=== PATIENT | female | born 1950 | race Caucasian/White ===

== ENCOUNTER 2016-12-28 07:48 | Inpatient (IN) | payer OTHER, MEDICARE ==
[2016-12-28] MEDS ORDERED: NS 1,000 ML IV ONE ×2 (07:55→10:05)
[2016-12-28] MEDS ORDERED: LORazepam 2 MG/ML INJ IVP ONE (08:08)
[2016-12-28 08:19] LABS: % IMMATURE GRANULYOCYTES 0.6 % (0.0-1.1); ADD DIFF? NO; ADD MORPH? NO; ADD SCAN? NO; ATYPICAL LYMPHOCYTE FLAG 0 (0-99); FRAGMENT RBC FLAG 0 (0-99); HEMATOCRIT 40.5 % (38.0-47.0); HEMOGLOBIN 14.9 g/dL (12.6-16.3); LEFT SHIFT FLG 0 (0-99); LIPEMIA HEMOLYSIS FLAG 90 (0-99); MEAN CELL HEMOGLOBIN 30.4 pg (27.9-34.1); MEAN CELL HEMOGLOBIN CONCENTR. 36.8 g/dL (32.4-36.7); MEAN CELL VOLUME 82.7 fL (81.5-99.8); MEAN PLATELET VOLUME 10.5 fL (8.7-11.7); PLATELET CLUMPS FLAG 0 (0-99); PLATELET COUNT 263 10^3/uL (150-400); RED CELL DISTRIBUTION WIDTH 11.9 % (11.5-15.2)
[2016-12-28 08:46] LABS: ALANINE AMINOTRANSFERASE 53 IU/L (9-52); ALBUMIN 4.6 g/dL (3.5-5.0); ALKALINE PHOSPHATASE 92 IU/L (38-126); ANION GAP 17 mEq/L (8-16); ASPARTATE AMINOTRANSFERASE 41 IU/L (14-46); BILIRUBIN,TOTAL 2.1 mg/dL (0.1-1.4); BILIRUBIN-CONJUGATED 0.3 mg/dL (0.0-0.5); BILIRUBIN-UNCONJUGATED 1.8 mg/dL (0.0-1.1); CALCIUM 9.5 mg/dL (8.5-10.4); CARBON DIOXIDE 18 mEq/l (22-31); CHLORIDE 82 mEq/L (97-110); CREATININE 0.8 mg/dL (0.6-1.0); GLOMERULAR FILTRATION RATE > 60; GLUCOSE 179 mg/dL (70-100); POTASSIUM 4.4 mEq/L (3.5-5.2); TOTAL PROTEIN 7.6 g/dL (6.3-8.2)
[2016-12-28 08:48] LABS: SODIUM 117 mEq/L (134-144)
--- NOTE | 2016-12-28 08:54 | EDPHY ---
H & P Stated Complaint: n/v/d Time Seen by Provider: 12/28/16 07:55 HPI/ROS: CHIEF COMPLAINT: Feeling shaky and weak HISTORY OF PRESENT ILLNESS: The patient presents to the ED via ambulance with generalized weakness and shakiness. The patient reports her symptoms have progressed over the past half day. She initially felt constipated yesterday. She took a number of [id number] laxatives and finally had improvement of her constipation and in fact developed fairly significant watery diarrhea. Over the course of the evening, discontinued. The patient did have one episode of vomiting. Today she felt "terrible" with generalized weakness and shaking all over. The patient denies acute abdominal pain. The patient does take medications for hyperlipidemia and hypertension. REVIEW OF SYSTEMS: A comprehensive 10 point review of systems is otherwise negative aside from elements mentioned in the history of present illness. Source: Patient Exam Limitations: No limitations - Personal History Current Tetanus Diphtheria and Acellular Pertussis (TDAP): Yes - Medical/Surgical History Hx Asthma: No Hx Chronic Respiratory Disease: No Hx Diabetes: No Hx Cardiac Disease: No Hx Renal Disease: No Hx Cirrhosis: No Hx Alcoholism: No Other PMH: good health. some htn in late 20s - Social History Smoking Status: Never smoked - Physical Exam Exam: General Appearance: Alert, tremulous, mild discomfort Eyes: Pupils equal and round no pallor or injection ENT, Mouth: Mucous membranes moist Respiratory: There are no retractions, lungs are clear to auscultation Cardiovascular: Regular rate and rhythm Gastrointestinal: Abdomen is soft and nontender, no masses, bowel sounds normal Neurological: A&O, normal motor function, normal sensory exam, normal cranial nerves Skin: Warm and dry, no rashes Musculoskeletal: Neck is supple nontender Extremities: symmetrical, full range of motion Constitutional: Initial Vital Signs Temperature (C) 36.3 C 12/28/16 08:07 Heart Rate 75 12/28/16 08:07 Respiratory Rate 30 H 12/28/16 08:07 Blood Pressure 138/112 H 12/28/16 08:07 O2 Sat (%) 100 12/28/16 08:07 O2 Delivery Mode Room Air Allergies/Adverse Reactions: No Known Allergies Allergy (Unverified 01/06/16 16:38) Home Medications: Medication Instructions Recorded Metoprolol Tartrate 25 mg PO BID #30 tablet 08/05/16 Multivitamin [Multi-Vitamin Daily] 01/06/16 Medical Decision Making ED Course/Re-evaluation: The patient presents to the ED with generalized weakness and uneasiness following profuse watery diarrhea and laxative use. The patient is noted to have an benign abdominal examination. She received Zofran prior to arrival. The patient received 1 L of normal saline and screening laboratory studies have been sent. Patient's laboratory studies do demonstrate a sodium of 117. The patient's last sodium level was slightly low at 132 in August. Recheck sodium is 118 after 1 L of normal saline. Case is discussed with the hospitalist Dr. Herrmann. The patient will receive another 1 L of normal saline over the next 12 hours. This will be infused using a pump. The patient will be admitted to the hospital for close observation. The patient presents to the ED with acute hyponatremia in the setting of diarrhea and recent laxative usage. The patient will be admitted to the hospital for observation and correction of her electrolyte abnormality. Differential Diagnosis: Differential diagnosis considered includes metabolic acidosis, dehydration, electrolyte abnormality, renal failure, medication side effect - Data Points Laboratory Results: Laboratory Results 12/28/16 Unknown 12/28/16 Unknown 12/28/16 12/28/16 12/28/16 Unknown Unknown 09:15 WBC 15.69 10^3/uL H 10^3/uL (3.80-9.50) RBC 4.90 10^6/uL 10^6/uL (4.18-5.33) Hgb 14.9 g/dL g/dL (12.6-16.3) Hct 40.5 % % (38.0-47.0) MCV 82.7 fL fL (81.5-99.8) MCH 30.4 pg pg (27.9-34.1) MCHC 36.8 g/dL H g/dL (32.4-36.7) RDW 11.9 % % (11.5-15.2) Plt Count 263 10^3/uL 10^3/uL (150-400) MPV 10.5 fL fL (8.7-11.7) Neut % (Auto) 86.9 % H % (39.3-74.2) Lymph % (Auto) 7.5 % L % (15.0-45.0) [place] % (Auto) 4.4 % L % (4.5-13.0) Eos % (Auto) 0.4 % L % (0.6-7.6) Baso % (Auto) 0.2 % L % (0.3-1.7) Nucleat RBC Rel Count 0.0 % % (0.0-0.2) Absolute Neuts (auto) 13.64 10^3/uL H 10^3/uL (1.70-6.50) Absolute Lymphs (auto) 1.17 10^3/uL 10^3/uL (1.00-3.00) Absolute Monos (auto) 0.69 10^3/uL 10^3/uL (0.30-0.80) Absolute Eos (auto) 0.06 10^3/uL 10^3/uL (0.03-0.40) Absolute Basos (auto) 0.03 10^3/uL 10^3/uL (0.02-0.10) Absolute Nucleated RBC 0.00 10^3/uL 10^3/uL (0-0.01) Immature Gran % 0.6 % % (0.0-1.1) Immature Gran # 0.10 10^3/uL 10^3/uL (0.00-0.10) Sodium 117 mEq/L L* mEq/L 118 mEq/L L* mEq/L (134-144) (134-144) Potassium 4.4 mEq/L mEq/L 3.8 mEq/L mEq/L (3.5-5.2) (3.5-5.2) Chloride 82 mEq/L L mEq/L 90 mEq/L L mEq/L (97-110) (97-110) Carbon Dioxide 18 mEq/l L mEq/l 19 mEq/l L mEq/l (22-31) (22-31) Anion Gap 17 mEq/L H mEq/L 9 mEq/L mEq/L (8-16) (8-16) BUN 22 mg/dL mg/dL 20 mg/dL mg/dL (7-23) (7-23) Creatinine 0.8 mg/dL mg/dL 0.7 mg/dL mg/dL (0.6-1.0) (0.6-1.0) Estimated GFR > 60 > 60 Glucose 179 mg/dL H mg/dL 134 mg/dL H mg/dL (70-100) (70-100) Calcium 9.5 mg/dL mg/dL 8.1 mg/dL L mg/dL (8.5-10.4) (8.5-10.4) Total Bilirubin 2.1 mg/dL H mg/dL (0.1-1.4) Conjugated Bilirubin 0.3 mg/dL mg/dL (0.0-0.5) Unconjugated Bilirubin 1.8 mg/dL H mg/dL (0.0-1.1) AST 41 IU/L IU/L (14-46) ALT 53 IU/L H IU/L (9-52) Alkaline Phosphatase 92 IU/L IU/L (38-126) Total Protein 7.6 g/dL g/dL (6.3-8.2) Albumin 4.6 g/dL g/dL (3.5-5.0) Lipase 66.0 IU/L IU/L (23-300) Medications Given: Discontinued Medications Sodium Chloride (Ns) 1,000 mls @ 0 mls/hr IV EDNOW ONE; Wide Open PRN Reason: Protocol Stop: 12/28/16 07:56 Last Admin: 12/28/16 08:05 Dose: 1,000 mls Lorazepam (Ativan Injection) 0.5 mg IVP EDNOW ONE Stop: 12/28/16 08:09 Last Admin: 12/28/16 08:16 Dose: 0.5 mg Departure - Departure Disposition: [facility] Acute Clinical Impression: Hyponatremia, Diarrhea, Dehydration Condition: Good Referrals: Sandra Almanza PA [Primary Care Provider] - As per Instructions
[2016-12-28 09:48] LABS: ANION GAP 9 mEq/L (8-16); CALCIUM 8.1 mg/dL (8.5-10.4); CARBON DIOXIDE 19 mEq/l (22-31); CHLORIDE 90 mEq/L (97-110); CREATININE 0.7 mg/dL (0.6-1.0); GLOMERULAR FILTRATION RATE > 60; GLUCOSE 134 mg/dL (70-100); POTASSIUM 3.8 mEq/L (3.5-5.2)
[2016-12-28 09:51] LABS: SODIUM 118 mEq/L (134-144)
[2016-12-28] MEDS ORDERED: PROMETHAZINE HCL 25 MG TAB PO PRN (12:07)
[2016-12-28] MEDS ORDERED: ONDANSETRON 4 MG/2 ML VIAL IVP PRN (12:07)
[2016-12-28] MEDS ORDERED: ACETAMINOPHEN 325 MG TAB PO PRN (12:07)
[2016-12-28] MEDS ORDERED: ONDANSETRON DISINTEGRATING 4 MG TAB PO PRN (12:07)
[2016-12-28] MEDS ORDERED: PROMETHAZINE HCL 25 MG/ML INJ IVP PRN (12:07)
[2016-12-28] MEDS ORDERED: NS W/ 20 KCl/L 1,000 ML IV SCH (12:15)
[2016-12-28 13:17] LABS: COLOR COLORLESS; LEUKOCYTE ESTERASE,URINE NEGATIVE (NEGATIVE); NITRITE,URINE NEGATIVE (NEGATIVE)
[2016-12-28 13:22] LABS: ANION GAP 9 mEq/L (8-16); CALCIUM 8.9 mg/dL (8.5-10.4); CARBON DIOXIDE 20 mEq/l (22-31); CHLORIDE 99 mEq/L (97-110); CREATININE 0.8 mg/dL (0.6-1.0); GLOMERULAR FILTRATION RATE > 60; GLUCOSE 100 mg/dL (70-100); POTASSIUM 3.9 mEq/L (3.5-5.2); SODIUM 128 mEq/L (134-144)
[2016-12-28] MEDS ORDERED: D5W 1,000 ML IV SCH ×2 (14:15→19:30)
--- NOTE | 2016-12-28 14:35 | PDGENHP ---
History and Physical - Chief Complaint Acute weakness - History of Present Illness primary care provider: JENNA Mccartney HPI: 66-year-old female presents with acute weakness characterized as generalized and "terrible feeling" with associated shakiness, nonproductive cough, constipation, resulting in nausea vomiting and diarrhea. Patient reports that she had otherwise been in her usual state of health until the day prior to this presentation. Onset on the day prior, when she was experiencing what she describes as severe constipation with fecal impaction. She attempted to manually disimpact and also took oral milk of magnesium. This was not effective. She ended up taking Dulcolax suppository and this produced immediate alleviation with resultant liquid stool. Patient reports that she was experiencing ongoing liquid stool throughout the majority of the night. She then also began vomiting on the morning of this presentation. Overall duration of her symptoms has been less than 24 hours. She reports that during the symptoms, she attempted to drink amounts of free water to remain hydrated. She does report that she missed her evening meal prior to presentation. She has not taken any of her home medications on the morning of this presentation. She reports that her urine output has remained steady. History Information - Allergies/Home Medication List Allergies/Adverse Reactions: No Known Allergies Allergy (Unverified 01/06/16 16:38) Home Medications: Ascorbic Acid [Vitamin C 500 mg (*)] 1,000 mg PO DAILY18 12/28/16 [Last Taken ] Atorvastatin Calcium [Lipitor 20 mg (*)] 20 mg PO DAILY@23 12/28/16 [Last Taken 12/27/16] Carvedilol [Coreg (*)] 6.25 mg PO BIDMEAL 12/28/16 [Last Taken 12/27/16 18:00] Cholecalciferol Vit D3 [Vitamin D3 (*)] 1,000 units PO DAILY18 12/28/16 [Last Taken 12/26/16] Cyanocobalamin [Vitamin B12 (*)] 1,000 mcg PO DAILY18 12/28/16 [Last Taken 12/26] Herbals/Supplements -Info Only 1 ea PO DAILY 12/28/16 [Last Taken Unknown] Hydrochlorothiazide [HCTZ (*)] 12.5 mg PO DAILY 12/28/16 [Last Taken 12/27/16] Gifford-3 Fatty Acids [Fish Oil 1000 mg (*)] 3,000 mg PO DAILY18 12/28/16 [Last Taken 12/26/16] Spironolactone [Aldactone 50 MG (RX)] 100 mg PO DAILY 12/28/16 [Last Taken 12/27] amLODIPine BESYLATE [Norvasc 5 mg (*)] 5 mg PO DAILY 12/28/16 [Last Taken ] I have personally reviewed and updated: family history, medical history, social history, surgical history - Past Medical History hypertension - Surgical History Additional surgical history: recent right mandibular tooth extraction - Family History Additional family history: both parents with hypertension, no family history of renal disease - Social History Smoking Status: Never smoked Alcohol Use: None Drug Use: None Additional social history: reports that she is normally physically active Review of Systems ROS: 10pt was reviewed & negative except for what was stated in HPI & below Constitutional: Reports: weakness, other ( shakiness, feels terrible) Respiratory: Reports: cough Gastrointestinal: Reports: vomitting, constipation, diarrhea, nausea Physical Exam Temp Pulse Resp BP Pulse Ox 36.8 C 72 18 120/90 H 96 12/28/16 10:04 12/28/16 10:04 12/28/16 10:04 12/28/16 10:04 12/28/16 10:04 Constitutional: no apparent distress, appears nourished, not in pain, uncomfortable Eyes: PERRL, anicteric sclera, EOMI Ears, Nose, Mouth, Throat: moist mucous membranes, hearing normal, ears appear normal, no oral mucosal ulcers Cardiovascular: regular rate and rhythym, no murmur, rub, or gallop, No edema Respiratory: no respiratory distress, no rales or rhonchi, clear to auscultation Gastrointestinal: normoactive bowel sounds, soft, non-tender abdomen, no palpable masses, No distension Skin: other ( good turgor, no abrasions) Neurologic: AAOx3, sensation intact bilaterally, No weakness ( motor strength 5/ 5 bilateral upper and lower extremities), No asterixes ( no tremulousness) Psychiatric: interacting appropriately, not anxious, not encephalopathic, thought process linear Lab Data & Imaging Review 12/28/16 Unknown 12/28/16 Unknown WBC 15.69 10^3/uL (3.80-9.50) H 12/28/16 Unknown RBC 4.90 10^6/uL (4.18-5.33) 12/28/16 Unknown Hgb 14.9 g/dL (12.6-16.3) 12/28/16 Unknown Hct 40.5 % (38.0-47.0) 12/28/16 Unknown MCV 82.7 fL (81.5-99.8) 12/28/16 Unknown MCH 30.4 pg (27.9-34.1) 12/28/16 Unknown MCHC 36.8 g/dL (32.4-36.7) H 12/28/16 Unknown RDW 11.9 % (11.5-15.2) 12/28/16 Unknown Plt Count 263 10^3/uL (150-400) 12/28/16 Unknown MPV 10.5 fL (8.7-11.7) 12/28/16 Unknown Neut % (Auto) 86.9 % (39.3-74.2) H 12/28/16 Unknown Lymph % (Auto) 7.5 % (15.0-45.0) L 12/28/16 Unknown [place] % (Auto) 4.4 % (4.5-13.0) L 12/28/16 Unknown Eos % (Auto) 0.4 % (0.6-7.6) L 12/28/16 Unknown Baso % (Auto) 0.2 % (0.3-1.7) L 12/28/16 Unknown Nucleat RBC Rel Count 0.0 % (0.0-0.2) 12/28/16 Unknown Absolute Neuts (auto) 13.64 10^3/uL (1.70-6.50) H 12/28/16 Unknown Absolute Lymphs (auto) 1.17 10^3/uL (1.00-3.00) 12/28/16 Unknown Absolute Monos (auto) 0.69 10^3/uL (0.30-0.80) 12/28/16 Unknown Absolute Eos (auto) 0.06 10^3/uL (0.03-0.40) 12/28/16 Unknown Absolute Basos (auto) 0.03 10^3/uL (0.02-0.10) 12/28/16 Unknown Absolute Nucleated RBC 0.00 10^3/uL (0-0.01) 12/28/16 Unknown Immature Gran % 0.6 % (0.0-1.1) 12/28/16 Unknown Immature Gran # 0.10 10^3/uL (0.00-0.10) 12/28/16 Unknown Sodium 117 mEq/L (134-144) L* 12/28/16 Unknown Potassium 4.4 mEq/L (3.5-5.2) 12/28/16 Unknown Chloride 82 mEq/L (97-110) L 12/28/16 Unknown Carbon Dioxide 18 mEq/l (22-31) L 12/28/16 Unknown Anion Gap 17 mEq/L (8-16) H 12/28/16 Unknown BUN 22 mg/dL (7-23) 12/28/16 Unknown Creatinine 0.8 mg/dL (0.6-1.0) 12/28/16 Unknown Estimated GFR > 60 12/28/16 Unknown Glucose 179 mg/dL (70-100) H 12/28/16 Unknown Serum Osmolality 270 mosmo/kg (280-297) L 12/28/16 12:53 Calcium 9.5 mg/dL (8.5-10.4) 12/28/16 Unknown Total Bilirubin 2.1 mg/dL (0.1-1.4) H 12/28/16 Unknown Conjugated Bilirubin 0.3 mg/dL (0.0-0.5) 12/28/16 Unknown Unconjugated Bilirubin 1.8 mg/dL (0.0-1.1) H 12/28/16 Unknown AST 41 IU/L (14-46) 12/28/16 Unknown ALT 53 IU/L (9-52) H 12/28/16 Unknown Alkaline Phosphatase 92 IU/L (38-126) 12/28/16 Unknown Total Protein 7.6 g/dL (6.3-8.2) 12/28/16 Unknown Albumin 4.6 g/dL (3.5-5.0) 12/28/16 Unknown Lipase 66.0 IU/L (23-300) 12/28/16 Unknown TSH 0.858 uIU/mL (0.465-4.680) 12/28/16 12:53 Urine Color COLORLESS 12/28/16 12:41 Urine Appearance CLEAR 12/28/16 12:41 Urine pH 7.0 (5.0-7.5) 12/28/16 12:41 Ur Specific [place] 1.001 (1.002-1.030) L 12/28/16 12:41 Urine Protein NEGATIVE (NEGATIVE) 12/28/16 12:41 Urine Ketones NEGATIVE (NEGATIVE) 12/28/16 12:41 Urine Blood NEGATIVE (NEGATIVE) 12/28/16 12:41 Urine Nitrate NEGATIVE (NEGATIVE) 12/28/16 12:41 Urine Bilirubin NEGATIVE (NEGATIVE) 12/28/16 12:41 Urine Urobilinogen NEGATIVE EU (0.2-1.0) 12/28/16 12:41 Ur Leukocyte Esterase NEGATIVE (NEGATIVE) 12/28/16 12:41 Urine Osmolality 63 mosmo/kg (300-900) L 12/28/16 12:41 Urine Glucose NEGATIVE (NEGATIVE) 12/28/16 12:41 Assessment & Plan Assessment: 66-year-old female presents with acute severe hyponatremia Plan: 1. Severe hyponatremia. Acute, new problem this provider, further workup indicated. Most likely secondary to a combination of hypovolemia with GI losses secondary to laxative use as well as polydipsia with free water as the patient was attempting to avoid dehydration -reviewed outside records including 08/02/2016 outpatient lab, serum sodium level is 132 at that time, patient reports to me that this was results of her reducing her dietary salt intake and drinking a significant amount of free water on a daily basis, notably 8 glasses, at least -presenting level 117 with symptoms, no evidence of seizure - status post 1 L of normal saline in the emergency department and initial increase in serum sodium level only marginal up to 118, has presently over corrected to a level of 128 - adjust fluids to D5W 100 cc/hour - will consult with Nephrology to determine whether we should give DDAVP or monitor the effect of free water before initiating -urine sodium level pending, urine Osmo is 60, demonstrating extremely dilute urine -q4 hour sodium checks 2. hypertension. Chronic, reviewed outside records including 01/05, emergency department report by Dr. Johnny Maradiaga, reports the patient presented with a systolic blood pressure of 2/140 without any known diagnosis of hypertension, prescribed metoprolol, discharged with outpatient follow-up - since initiating metoprolol, patient did complain of fatigue symptoms and her primary care provider adjusted her to carvedilol as well as amlodipine and hydrochlorothiazide - will hold patient's hydrochlorothiazide given the above -continue amlodipine and carvedilol, maintain a systolic blood pressure in the 130 to 150 range, hold antihypertensives if interfering Diet. Regular Prophylaxis. Moderate risk patient, Lovenox 40 Code. Full Disposition. Anticipated discharge uncertain this time, anticipated length stay is greater than 48 hours warranting inpatient admission status for severe acute hyponatremia requiring frequent lab draws, further workup, IV fluids and anticipated recovery period of at least 48 hours given the severity and the risks of rapid correction. I have discussed the presentation with Dr. Billy Herrmann, he has signed the patient out to me for admission.
[2016-12-28] MEDS ORDERED: DESMOPRESSIN ACETATE 2 MCG in NS 50 ML IV ONE (15:13)
[2016-12-28] MEDS: CARVEDILOL 6.25 MG TAB PO SCH (18:41)
[2016-12-28] MEDS: OMEGA-3 FATTY ACIDS 1,000 MG CAP PO SCH (18:42)
[2016-12-28] MEDS: CHOLECALCIFEROL VIT D3 1,000 UNITS TAB PO SCH (18:42)
[2016-12-28] MEDS: ASCORBIC ACID 500 MG TAB PO SCH (18:42)
[2016-12-28] MEDS: CYANO/VITAMIN B12 1000 MCG TAB PO SCH (18:42)
--- NOTE | 2016-12-28 19:09 | SOAPPROG ---
SOAP Progress Note Assessment/Plan: Assessment: Please see dictation # [id number] Hyponatremia- suspect poor solute intake (very low urine Osm and urine Na) now with over rapid correction- given DDAVP and D5W, now Na back to 129 goal correction no more than 8 points in first 24 hours ( < 125 by 9 am)--thus needs continued free water replacement to lower her further. May need further DDAVP- will see what next labs are. Check Na q2 hours for now in ICU Would avoid thiazide in future I discussed with Dr. John Sherman MD [facility] pager [phone] Plan: 12/28/16 19:42 Objective: Vital Signs Temp Pulse Resp BP Pulse Ox 36.4 C 71 18 120/90 H 98 12/28/16 18:00 12/28/16 18:41 12/28/16 18:00 12/28/16 18:41 12/28/16 18:00 Laboratory Results 12/28/16 Unknown 12/28/16 Unknown 12/27/16 12/28/16 12/29/16 05:59 05:59 05:59 Intake Total 1850 Balance 1850 ICD10 Worksheet Patient Problems: Problems Problem Status Onset Dehydration Acute Diarrhea Acute Hyponatremia Acute
[2016-12-28] MEDS ORDERED: DESMOPRESSIN ACETATE 4 MCG/ML INJ IVP ONE (21:00)
--- NOTE | 2016-12-28 21:26 | GCON ---
[f rep st] CONSULTATION INPATIENT NEPHROLOGY CONSULTATION DATE OF CONSULTATION: 12/28/2016 REFERRING PHYSICIAN: Tanner Garcia of [facility] REASON FOR CONSULTATION: Hyponatremia. HISTORY OF PRESENT ILLNESS: The patient is a 66-year-old woman with a history of hypertension, who presented to the emergency room today complaining of weakness after several episodes of diarrhea. S he has a history of hypertension and takes spironolactone, hydrochlorothiazide, Coreg, and amlodipin e. She developed severe constipation earlier in the week and took several laxatives. Unfortunately , she began then having several episodes of diarrhea. She was unable to eat any food but continued to drink several glasses of water. On arrival to the emergency room, her sodium was 118 at 9:00 thi s morning. She was given IV normal saline in the emergency room, and her sodium began to rapidly co rrect to a value of 128 at 1:[address] Garcia called me at that point. We gave her DD [employer] as well as D5W. Her sodium on the next check was up to 134, but our most recent check at 1830, is down to 129. The patient tells me that her sodium has been low before. Reviewing labs in the [facility] system, her sodium is 132 on August 02 of this year. Again, she is on a thiazide diuretic. S he did have a TSH checked that was normal at 0.858. She denies any history of congestive heart fail ure or lower extremity edema. She has not had any liver disease. She reports that the weakness and diarrhea has improved significantly since arrival. REVIEW OF SYSTEMS: GENERAL: She has had generalized malaise, poor oral intact. No fevers. HEENT: No sore throat. PULMONARY: No shortness of breath. CARDIAC: No lower extremity edema. No chest pain. GI: She had severe constipation and subsequent diarrhea after taking laxatives. No blood i n her stool. : No dysuria. No difficulty voiding. SKIN: No rash. NEUROLOGIC: She did have so me weakness and dizziness; that has improved. No confusion per her family. HEMATOLOGIC: No bleedin g. PAST MEDICAL HISTORY: Hypertension. SOCIAL HISTORY: She is . Denies any tobacco, alcohol, or drug use. FAMILY HISTORY: There is hypertension in her family. No kidney disease, as far as she is aware. OUTPATIENT MEDICATIONS: Included: 1. Vitamin C. 2. Lipitor. 3. Coreg. 4. Vitamin D3. 5. Vitamin B12. 6. Herbal supplement. 7. HCTZ. 8. Fish oil. 9. Spironolactone. 10. Amlodipine. CURRENT MEDICATIONS: Includes: 1. Tylenol p.r.n. 2. Amlodipine 5 mg p.o. daily. 3. Vitamin C 1000 mg daily. 4. Lipitor 20 mg p.o. daily. 5. Coreg 6.25 mg p.o. b.i.d. 6. Vitamin D3 1000 units daily. 7. D5W at 250 cc/hr. 8. Lovenox 40 mg subcutaneously daily. 9. Fish oil 3000 mg p.o. daily. 10. Zofran p.r.n. 11. Phenergan p.r.n. 12. Vitamin B complex daily. PHYSICAL EXAMINATION: VITAL SIGNS: Temperature is 36.4, blood pressure is 120/90, pulse is 71, sat ting 98% on room air. GENERAL: She is in no acute distress, lying in bed comfortably. Appears wel l. HEENT: Mucous membranes are moist. No scleral icterus. NECK: Supple. LUNGS: Clear to auscu ltation bilaterally. CARDIOVASCULAR: Regular rate and rhythm. No murmurs or rub. ABDOMEN: Soft, nontender. No ascites. EXTREMITIES: Warm. Low perfusion. No edema. SKIN: No rash. NEUROLOGI C: Alert and oriented x3. No focal deficits. LABORATORY DATA: Her most recent sodium was 129 at 1830. Her labs from earlier today had a potassi um of 3.9, chloride 99, bicarbonate 22, BUN 15, creatinine 0.8. Serum osmolarity is 270, calcium 8. 9, total bilirubin 2.1, unconjugated bili 1.8, AST 41, ALT 53, alkaline phosphatase 92, total protei n 7.6, albumin 4.6, lipase 66. TSH 0.858. Her urine sodium is 10. Her urine osmolarity is 63. He r UA was negative for blood and protein. White blood cell count 15, hemoglobin 14.9, hematocrit 40. 5, platelets 263. ASSESSMENT AND PLAN: The patient is a 66-year-old woman with a history of hypertension, who now pre sents with several episodes of diarrhea, poor oral intake, and weakness, and found to have severe hy ponatremia: 1. Hyponatremia: Her initial serum sodium at 9:00 this morning was 118 with her initial urine stud ies that suggest of poor solute intake. This is consistent with her report of essentially just drin marine water over the past day and not eating much. She did overly rapidly correct with administratio n of IV normal saline, and we have had to give her some DDAVP and D5W water to bring her down. Her goal sodium correction should be no more than 8 points in the first 24 hours, thus her sodium should no more than 125 by 9:00 tomorrow morning. Her most recent sodium is down to 129. I would continu e the D5W and encouraging her to drink oral water at this point. We may need to re-dose her with DD [employer] if she does not continue drift down. Neurologically, she is intact. I have recommended that sh e be in the ICU for frequent lab checks. At this point, we should do q.2 hour sodiums to ensure it is correcting appropriately. Her thyroid studies are normal. In the future. I would avoid a thiazi de diuretic in her as she is at risk for recurrence. Her labs in August did show that she had some m ild hyponatremia at baseline, and this is admittedly due to her excessive water intake in the settin g of a thiazide. 2. Hypertension: She is continuing on spironolactone, amlodipine, and Coreg. Again, I would avoid a thiazide in the future with her given the severity of this episode. Thank you very much for the consultation. We will continue to follow closely with you. Please do no t hesitate to call with any questions. I have discussed my recommendations with Dr. Garcia and the ICU team. /[id number]/MODL
[2016-12-28] MEDS: ATORVASTATIN CALCIUM 20 MG TAB PO SCH (22:46)
[2016-12-29 05:08] LABS: % IMMATURE GRANULYOCYTES 0.4 % (0.0-1.1); ABSOLUTE IMMATURE GRANULOCYTES 0.03 10^3/uL (0.00-0.10); ADD DIFF? NO; ADD MORPH? NO; ADD SCAN? NO; ATYPICAL LYMPHOCYTE FLAG 0 (0-99); FRAGMENT RBC FLAG 0 (0-99); HEMATOCRIT 30.9 % (38.0-47.0); HEMOGLOBIN 11.2 g/dL (12.6-16.3); LEFT SHIFT FLG 20 (0-99); LIPEMIA HEMOLYSIS FLAG 90 (0-99); MEAN CELL HEMOGLOBIN 30.8 pg (27.9-34.1); MEAN CELL HEMOGLOBIN CONCENTR. 36.2 g/dL (32.4-36.7); MEAN CELL VOLUME 84.9 fL (81.5-99.8); PLATELET CLUMPS FLAG 0 (0-99); PLATELET COUNT 176 10^3/uL (150-400); RED BLOOD CELL COUNT 3.64 10^6/uL (4.18-5.33); RED CELL DISTRIBUTION WIDTH 12.1 % (11.5-15.2)
[2016-12-29 05:24] LABS: ALANINE AMINOTRANSFERASE 39 IU/L (9-52); ALBUMIN 3.1 g/dL (3.5-5.0); ALKALINE PHOSPHATASE 53 IU/L (38-126); ANION GAP 8 mEq/L (8-16); ASPARTATE AMINOTRANSFERASE 28 IU/L (14-46); BILIRUBIN,TOTAL 0.8 mg/dL (0.1-1.4); CALCIUM 7.9 mg/dL (8.5-10.4); CARBON DIOXIDE 20 mEq/l (22-31); CHLORIDE 92 mEq/L (97-110); CREATININE 0.7 mg/dL (0.6-1.0); GLOMERULAR FILTRATION RATE > 60; GLUCOSE 113 mg/dL (70-100); MAGNESIUM 1.9 mg/dL (1.6-2.3); POTASSIUM 3.3 mEq/L (3.5-5.2); SODIUM 120 mEq/L (134-144); TOTAL PROTEIN 5.4 g/dL (6.3-8.2)
[2016-12-29] MEDS ORDERED: Herbals/Supplements -Info Only PO SCH (09:00)
[2016-12-29] MEDS ORDERED: amLODIPine BESYLATE 5 MG TAB PO SCH (09:00)
[2016-12-29] MEDS: CARVEDILOL 6.25 MG TAB PO SCH ×2 (09:16→17:17)
[2016-12-29] MEDS: amLODIPine BESYLATE 5 MG TAB PO SCH (09:17)
[2016-12-29] MEDS: ENOXAPARIN 40 MG/0.4 ML SYR SC SCH (09:17)
[2016-12-29] MEDS ORDERED: ALTEPLASE 2 MG VIAL IVP PRN (11:03)
--- NOTE | 2016-12-29 11:12 | SOAPPROG ---
SOAP Progress Note Assessment/Plan: Assessment: Please see dictation # [id number] Hyponatremia- suspect poor solute intake (very low urine Osm and urine Na) with over rapid correction- given DDAVP and D5W, now Na down to 117 goal correction no more than 8 points in 24 hours ( < 125 by 9 am)--now holding D5W and water. Adding back in NS @ 100 cc/hr with further adjustment as needed based on next labs. I expect her to start to correct as the DDAVP and water effect wears off. I will repeat urine studies now. Encourage po solute intake ( Restrict fluids 1L/day). Check Na q2 hours for now in ICU Would avoid thiazide in future Hypokalemia- repleting HTN I discussed with Dr. Lopez and SALES TRAINING MANAGER Tressa Sherman MD [facility] pager [phone] 12/29/16 12:47 12/29/16 12:50 Subjective: Feels weak and some nausea today. No vomiting, not eating much. No sob. Given more DDAVP and water overnight. Objective: Vital Signs Temp Pulse Resp BP Pulse Ox 36.4 C 75 19 133/69 H 98 12/29/16 08:00 12/29/16 09:16 12/29/16 08:00 12/29/16 09:17 12/29/16 08:00 Laboratory Results 12/29/16 04:50 12/29/16 08:50 12/28/16 12/29/16 12/30/16 05:59 05:59 05:59 Intake Total 5263 142 Output Total 750 Balance 4513 142 Physical Exam - Physical Exam General Appearance: alert, no apparent distress EENT: normal ENT inspection Neck: supple Respiratory: lungs clear Cardiac/Chest: regular rate, rhythm Abdomen: normal bowel sounds, non-tender, soft Skin: warm/dry Extremities: other (no edema) Neuro/Psych: alert, oriented x 3 ICD10 Worksheet Patient Problems: Problems Problem Status Onset Dehydration Acute Diarrhea Acute Hyponatremia Acute
[2016-12-29] MEDS ORDERED: NS 1,000 ML IV SCH (13:00)
--- NOTE | 2016-12-29 16:20 | HOSPPROG ---
Hospitalist Progress Note Assessment/Plan: Assessment: 66-year-old female presents with acute severe hyponatremia Plan: 1. Severe hyponatremia. Acute, initially secondary to a combination of hypovolemia with GI losses secondary to laxative use as well as polydipsia with free water as the patient was attempting to avoid dehydration -corrected too rapidly yesterday, received two doses of DDAVP + D5W and increased PO fluid intake, now stuck at 117 -cont to encourage PO solid intake, free water restriction -d/w Dr. Adhikari, she recommended NS low rate, cont q2h checks via PICC line 2. Hypertension. Chronic -will hold patient's hydrochlorothiazide given the above -continue amlodipine and carvedilol Diet. Regular Prophylaxis. Moderate risk patient, Lovenox 40 Code. Full Disposition. Anticipated discharge uncertain, requiring freq Na checks Subjective: Counseled patient extensively regarding the need to check frequent sodium levels, encourage her to increase her oral intake of solids, discussed the reasoning behind the fluid restriction, discussed sleep interruptions with q.2 hours vital signs Objective: Vital Signs Temp Pulse Resp BP Pulse Ox 36.5 C 66 16 137/87 H 99 12/29/16 16:00 12/29/16 16:00 12/29/16 16:00 12/29/16 16:00 12/29/16 16:00 Laboratory Results 12/29/16 04:50 12/28/16 12/29/16 12/30/16 05:59 05:59 05:59 Intake Total 5263 142 Output Total 750 Balance 4513 142 - Time Spent With Patient Time Spent with Patient: greater than 35 minutes Time Spent with Patient: Greater than 35 minutes spent on this patients care, greater than 50% of time spent counseling, educating, and coordinating care regarding the above mentioned plan. - Physical Exam Constitutional: no apparent distress, appears nourished, not in pain Cardiovascular: regular rate and rhythym, no murmur, rub, or gallop Respiratory: no respiratory distress, no rales or rhonchi, clear to auscultation Gastrointestinal: normoactive bowel sounds, soft, non-tender abdomen, no palpable masses Neurologic: AAOx3, No asterixes ( not tremulous) Psychiatric: interacting appropriately, not anxious, not encephalopathic, thought process linear ICD10 Worksheet Patient Problems: Problems Problem Status Onset Dehydration Acute Diarrhea Acute Hyponatremia Acute
[2016-12-29] MEDS ORDERED: FUROSEMIDE 20 MG TAB PO ONE (17:00)
[2016-12-29] MEDS: CHOLECALCIFEROL VIT D3 1,000 UNITS TAB PO SCH (17:14)
[2016-12-29] MEDS: CYANO/VITAMIN B12 1000 MCG TAB PO SCH (17:14)
[2016-12-29] MEDS: OMEGA-3 FATTY ACIDS 1,000 MG CAP PO SCH (17:14)
[2016-12-29] MEDS: ASCORBIC ACID 500 MG TAB PO SCH (17:18)
[2016-12-29] MEDS ORDERED: SODIUM CHLORIDE 1,000 MG TAB PO SCH (18:00)
[2016-12-29] MEDS: ATORVASTATIN CALCIUM 20 MG TAB PO SCH (23:19)
[2016-12-29] MEDS ORDERED: D5W 1,000 ML IV ONE (23:30)
[2016-12-30 02:04] LABS: MAGNESIUM 1.9 mg/dL (1.6-2.3)
[2016-12-30] MEDS ORDERED: D5W 1,000 ML IV ONE (06:00)
--- NOTE | 2016-12-30 07:34 | SOAPPROG ---
SOAP Progress Note Assessment/Plan: Assessment: Please see dictation # [id number] Hyponatremia- suspect poor solute intake (very low urine Osm and urine Na) with over rapid correction- given DDAVP and D5W. Then Na stuck at high teens yesterday afternoon- given IV NS, NaCL tabs and one dose lasix--Na rising a bit fast overnight so giving D5W back and lifting fluid restriction. Check Na q2 hours for now in ICU- can back off frequency once sure Na stable Would avoid thiazide in future Hypokalemia- repleting HTN- amlodipine/carvedilol I discussed with [employer] Tressa Sherman MD [facility] pager [phone] 12/30/16 08:00 Subjective: Feels much better this am. Ate some pizza for dinner, going for walk now. No n/ v. Objective: Vital Signs Temp Pulse Resp BP Pulse Ox 36.5 C 74 12 126/68 H 99 12/29/16 16:00 12/29/16 23:19 12/29/16 23:19 12/29/16 23:19 12/29/16 23:19 Laboratory Results 12/29/16 04:50 12/30/16 04:45 12/29/16 12/30/16 12/31/16 05:59 05:59 05:59 Intake Total 5263 2021 Output Total 750 Balance 4513 2021 Physical Exam - Physical Exam General Appearance: no apparent distress Neck: supple Cardiac/Chest: regular rate, rhythm Extremities: other (no edema) Neuro/Psych: alert, oriented x 3 ICD10 Worksheet Patient Problems: Problems Problem Status Onset Dehydration Acute Diarrhea Acute Hyponatremia Acute
[2016-12-30] MEDS: CARVEDILOL 6.25 MG TAB PO SCH ×2 (08:23→18:16)
[2016-12-30] MEDS: ENOXAPARIN 40 MG/0.4 ML SYR SC SCH (08:24)
[2016-12-30] MEDS: amLODIPine BESYLATE 5 MG TAB PO SCH (08:24)
[2016-12-30] MEDS ORDERED: D5W 1,000 ML IV SCH (13:00)
--- NOTE | 2016-12-30 15:39 | HOSPPROG ---
Hospitalist Progress Note Assessment/Plan: Assessment: 66-year-old female presents with acute severe hyponatremia Plan: 1. Severe hyponatremia. Acute, initially secondary to a combination of hypovolemia with GI losses secondary to laxative use as well as polydipsia with free water as the patient was attempting to avoid dehydration -required adjustment o/n from NS to D5 today given too rapid of correction -d/w Dr. Adhikari, she recommended continuing D5 w/ loosening water restriction, monitoring q4h Na -counseled the patient extensively on today's plan, cautious improvement in Na levels 2. Hypertension. Chronic -will hold patient's hydrochlorothiazide given the above -continue amlodipine and carvedilol Diet. Regular Prophylaxis. Moderate risk patient, Lovenox 40 Code. Full Disposition. Anticipated discharge 12/31, requiring freq Na checks and ongoing d5 IVF Subjective: patient reports she is eating well Objective: Vital Signs Temp Pulse Resp BP Pulse Ox 36.5 C 68 16 123/67 H 100 12/30/16 08:00 12/30/16 12:00 12/30/16 12:00 12/30/16 12:00 12/30/16 12:00 Laboratory Results 12/29/16 04:50 12/30/16 12:00 12/29/16 12/30/16 12/31/16 05:59 05:59 05:59 Intake Total 5263 2 245 Output Total 750 Balance 4513 2 245 - Time Spent With Patient Time Spent with Patient: greater than 25 minutes Time Spent with Patient: Greater than 25 minutes spent on this patients care, greater than 50% of time spent counseling, educating, and coordinating care regarding the above mentioned plan. - Pending Discharge Pending Discharge Within 24 Hours: Yes Pending Discharge Date: 12/31/16 Pending Discharge Time: 11:00 - Physical Exam Constitutional: no apparent distress, appears nourished, not in pain Cardiovascular: No edema Neurologic: AAOx3 Psychiatric: interacting appropriately, not anxious, not encephalopathic, thought process linear ICD10 Worksheet Patient Problems: Problems Problem Status Onset Hyponatremia Acute Diarrhea Acute Dehydration Acute
[2016-12-30] MEDS ORDERED: DESMOPRESSIN ACETATE 4 MCG/ML INJ IVP ONE (16:40)
[2016-12-30] MEDS ORDERED: DESMOPRESSIN ACETATE 1 MCG in NS 50 ML IV ONE (17:45)
[2016-12-30] MEDS: OMEGA-3 FATTY ACIDS 1,000 MG CAP PO SCH (18:15)
[2016-12-30] MEDS: CYANO/VITAMIN B12 1000 MCG TAB PO SCH (18:16)
[2016-12-30] MEDS: CHOLECALCIFEROL VIT D3 1,000 UNITS TAB PO SCH (18:16)
[2016-12-30] MEDS: ASCORBIC ACID 500 MG TAB PO SCH (18:16)
[2016-12-30] MEDS: ATORVASTATIN CALCIUM 20 MG TAB PO SCH (22:53)
[2016-12-31 04:48] LABS: MAGNESIUM 1.6 mg/dL (1.6-2.3)
[2016-12-31 07:57] VITALS: RESP 18; TEMP 97.4; O2SAT 97
[2016-12-31] MEDS: ENOXAPARIN 40 MG/0.4 ML SYR SC SCH (07:59)
[2016-12-31] MEDS: CARVEDILOL 6.25 MG TAB PO SCH (07:59)
[2016-12-31] MEDS: amLODIPine BESYLATE 5 MG TAB PO SCH (07:59)
[2016-12-31 08:00] VITALS: PULSE 73
[2016-12-31] MEDS ORDERED: amLODIPine BESYLATE 5 MG TAB PO SCH (09:00)
[2016-12-31 10:02] VITALS: BP 152/80
--- NOTE | 2016-12-31 12:17 | SOAPPROG ---
SOAP Progress Note Assessment/Plan: Assessment/Plan: The patient is a 66 y/o F with a known h/o HTN who presented with hyponatremia that may have been multifactorial 2/2 to HCTZ, diarrhea, and poor solute intake that rapidly overcorrected and is now improved with D5W and DDAVP Hyponatremia- -Would continue to hold hctz. -Limit fluid intake to 1.5L for now. -Increase protein intake. -Repeat BMP later this week as outpatient. -Patient to follow-up in my office next week. Hypokalemia- repleting HTN- -amlodipine/carvedilol -hold aldactone and taking home BP's -f/u as above 12/31/16 12:14 Subjective: The patient is a sitting up to chair feeling much better. She states that she is eating more and is aware not to drink too much water. Denies further nausea, diarrhea, confusion, or other ROS. Objective: Vital Signs Temp Pulse Resp BP Pulse Ox 36.3 C 73 18 152/80 H 97 12/31/16 07:57 12/31/16 07:59 12/31/16 07:57 12/31/16 10:01 12/31/16 07:57 Laboratory Results 12/29/16 04:50 12/31/16 10:30 12/30/16 12/31/16 01/01/17 05:59 05:59 05:59 Intake Total 2021 2560 Balance 2021 2560 Physical Exam - Physical Exam General Appearance: alert, no apparent distress Neck: non-tender, full range of motion, supple Respiratory: lungs clear, normal breath sounds Cardiac/Chest: normal peripheral pulses, regular rate, rhythm Abdomen: normal bowel sounds, non-tender, soft Pelvic Exam: deferred Rectal: deferred Skin: normal color, warm/dry Extremities: normal range of motion Neuro/Psych: alert, normal mood/affect, oriented x 3, abnormal associate loan officer II-XII ICD10 Worksheet Patient Problems: Problems Problem Status Onset Dehydration Acute Diarrhea Acute Hyponatremia Acute
--- NOTE | 2016-12-31 17:01 | PDDCSUM ---
Discharge Summary Discharge Summary: DISCHARGE SUMMARY FOLLOW-UP ITEMS: Outpatient serum sodium level, follow up with Nephrology DATE OF ADMISSION: 12/28/2016 DATE OF DISCHARGE: 12/31/2016 DISCHARGE DIAGNOSES: 1. Acute severe hyponatremia 2. Chronic hypertension CONSULTATIONS: Nephrology PROCEDURES / IMAGING: None CHIEF COMPLAINT: Malaise, weakness, nausea SUBJECTIVE: Patient is feeling well at time of discharge, she does feel somewhat fatigued PHYSICAL EXAM ON DISCHARGE: Systolic blood pressure 150 to 160, heart rate 70, afebrile overnight, alert awake oriented x3, non tremulous LABS ON DISCHARGE: Serum sodium level 128 HOSPITAL COURSE BY PROBLEM: 1. Acute severe hyponatremia. Patient presented with symptomatic severe hyponatremia in the setting of GI losses secondary to laxative use as well as polydipsia with free water, as the patient was attempting to avoid dehydration. The combination of these 2 issues resulted in hypovolemia with delusional effect of polydipsia. Patient initially received normal saline for volume resuscitation but this led to rapid correction of hyponatremia a very dangerous rate, increasing from 117 to 128. Nephrology was consulted and the patient received 2 doses of DDAVP as well as intravenous D5W. This helped slow her correction rate and she was monitored on every 2 hour sodium checks in the ICU. Her diet was liberalized, she received oral salt tabs, and her serum sodium level began correcting too rapidly on 12/30, and she received another dosage of DDAVP as well as intravenous D5W. She was then maintained on a regular diet and her serum sodium level stabilized on 12/31, increasing at a safe rate up to 128. At the time of discharge, she was otherwise asymptomatic, and she will follow up the outpatient setting with Nephrology and outpatient serum sodium check. She received extensive dietary counseling regarding solid and liquid intake. 2. Chronic hypertension. Patient has been on 4 antihypertensive medications prior to her hospitalization, and her Aldactone and hydrochlorothiazide were held during this hospitalization. Her amlodipine was increased and she will follow up at the Nephrology Clinic for further blood pressure management. DISCHARGE MEDICATIONS: Please see official discharge medication reconciliation sheet in chart , amlodipine 10 mg daily, carvedilol 6.25 mg twice daily, discontinuation of Aldactone hydrochlorothiazide. DISCHARGE INSTRUCTIONS: Please follow up with Nephrology clinic and have labs checked prior to appointment. TIME SPENT: Greater than 30 minutes were spent on direct patient care, as well as discharge planning and preparation.
== END 2016-12-31 14:53 | disposition home or self-care (01) | DRG 641 ==
LOC: EDUNIT# → F1N 11:08 → OBSVTOIN 12:07 → F2N 17:16 → F3E 12-30 18:51
PROVIDERS: ADMIT Internal Medicine Pulmonary Disease; ATTEND Internal Medicine Pulmonary Disease
PROC: 02HV33Z Insertion of Infusion Device into Superior Vena Cava, Percutaneous Approach (ICD-10-PCS; principal; 2016-12-29)
DX: E87.1 Hypo-osmolality and hyponatremia (principal); E87.6 Hypokalemia; R63.1 Polydipsia; T47.4X5A Adverse effect of other laxatives, initial encounter; I10 Essential (primary) hypertension; E78.5 Hyperlipidemia, unspecified
CPT/HCPCS: 96374; C1751; J1650; J2060; J2597; J2997

== ENCOUNTER → 2017-05-10 | Outpatient (CLI) | payer OTHER, MEDICARE | LOC: BRMIMAGING 13:20 | PROVIDERS: ATTEND Physician Assistant Medical | DX: Z12.31 Encounter for screening mammogram for malignant neoplasm of breast (principal); R92.8 Other abnormal and inconclusive findings on diagnostic imaging of breast | CPT/HCPCS: G0202 ==

== ENCOUNTER → 2017-06-14 | Outpatient (CLI) | payer OTHER, MEDICARE | LOC: BRMIMAGING 09:13 | PROVIDERS: ATTEND Physician Assistant Medical | DX: R92.8 Other abnormal and inconclusive findings on diagnostic imaging of breast (principal) | CPT/HCPCS: 76641-PO ==